=== PATIENT | female | born 1985 ===

== ENCOUNTER 2018-04-14 21:36 | Observation (INO) | payer OTHER ==
[2018-04-14 22:05] VITALS: BMI 45.3
--- NOTE | 2018-04-14 23:05 | ED PDOC ---
Arrival/HPI - General Chief Complaint: Upper Extremity Problem/Injury Time Seen by Provider: 04/14/18 22:21 Historian: Patient - History of Present Illness Narrative History of Present Illness (Text): 04/14/18 23:05 Sirena Richard is a 33 year old female, whose past medical history includes carpal tunnel syndrome s/p recent surgery, who presents to the Emergency department with complaints of pain in right wrist. Patient reports she recently had right carpal tunnel surgical repair performed and went to her orthopedist's office today for suture removal. Patient states she had pain and swelling with purulent discharge from the area after they were removed. Patient's orthopedist placed more sutures while in the office, but patient reports pain and swelling did not resolve so she removed them at home. Patient denies fevers, chills, weakness/numbness/tingling in the extremity, decreased range of motion, nausea, vomiting, neck pain, headache, dizziness, or any other complaints. Orthopedist: Dr. Pacheco Time/Duration: 4-6 hours Symptom Onset: Gradual Symptom Course: Worsening Activities at Onset: Light Context: Home Past Medical History - Provider Review Nursing Documentation Reviewed: Yes - Musculoskeletal/Rheumatological Other/Comment: carpal tunnel - Psychiatric Hx Substance Use: No - Surgical History Hx Orthopedic Surgery: Yes - Anesthesia Hx Anesthesia: Yes Family/Social History - Physician Review Nursing Documentation Reviewed: Yes Family/Social History: Unknown Family HX Smoking Status: Never Smoked Hx Alcohol Use: No Hx Substance Use: No Allergies/Home Meds Allergies/Adverse Reactions: Allergies cefazolin [From Ancef] Allergy (Verified 04/14/18 22:05) SWELLING Review of Systems - Physician Review All systems were reviewed & negative as marked: Yes - Review of Systems Constitutional: absent: Fevers Respiratory: absent: SOB, Cough Cardiovascular: absent: Chest Pain Gastrointestinal: absent: Abdominal Pain, Nausea, Vomiting Musculoskeletal: Other (+right wrist pain/swelling). absent: Back Pain, Neck Pain Neurological: absent: Headache, Dizziness Physical Exam Vital Signs Reviewed: Yes Vital Signs Temp Pulse Resp BP Pulse Ox 04/14/18 22:04 97.9 F 85 18 122/76 99 Temperature: Afebrile Blood Pressure: Normal Pulse: Regular Respiratory Rate: Normal Appearance: Positive for: Well-Appearing, Non-Toxic, Comfortable Pain Distress: None Mental Status: Positive for: Alert and Oriented X 3 - Systems Exam Head: Present: Atraumatic, Normocephalic Pupils: Present: PERRL Extroacular Muscles: Present: EOMI Conjunctiva: Present: Normal Mouth: Present: Moist Mucous Membranes Neck: Present: Normal Range of Motion Respiratory/Chest: Present: Clear to Auscultation, Good Air Exchange. No: Respiratory Distress, Accessory Muscle Use Cardiovascular: Present: Regular Rate and Rhythm, Normal S1, S2. No: Murmurs Abdomen: No: Tenderness, Distention, Peritoneal Signs Back: Present: Normal Inspection Upper Extremity: Present: Tenderness (Right wrist tenderness), Swelling (Right wrist swelling ), Erythema (Right wrist erythema), Temperature Abnormalties (Rig ht wrist warmth). No: Cyanosis, Edema Lower Extremity: Present: Normal Inspection. No: Edema Neurological: Present: GCS=15, CN II-XII Intact, Speech Normal Skin: Present: Warm, Dry, Normal Color. No: Rashes Psychiatric: Present: Alert, Oriented x 3, Normal Insight, Normal Concentration Medical Decision Making ED Course and Treatment: 04/14/18 23:18 Impression: 33 year old female complaining of right wrist pain, swelling, and purulent disch arge. Plan: -- Labs -- Blood Culture -- Reassess and disposition Prior Visits: Notes and results from previous visits were reviewed. Progress Notes: 04/15/18 01:02 Case discussed with medical office administrator environmental monitoring specialist, who is aware and agrees with plan. 04/15/18 01:[address] Brooks, who is aware and agrees with plan. Accepts pt in to the hospitalist service. Pt will go to [facility] observation for cellulitis. - Lab Interpretations I have reviewed the lab results: Yes - PA / DATA WAREHOUSE SPECIALIST / Resident Statement MD/DO has reviewed & agrees with the documentation as recorded. - Scribe Statement The provider has reviewed the documentation as recorded by the Scribbryan Choi training with Val Dallas Provider Scribe Attestation: All medical record entries made by the Scribe were at my direction and personally dictated by me. I have reviewed the chart and agree that the record accurately reflects my personal performance of the history, physical exam, medical decision making, and the department course for this patient. I have also personally directed, reviewed, and agree with the discharge instructions and disposition. Disposition/Present on Arrival - Present on Arrival Any Indicators Present on Arrival: No History of DVT/PE: No History of Uncontrolled Diabetes: No Urinary Catheter: No History of Decub. Ulcer: No History Surgical Site Infection Following: None - Disposition Have Diagnosis and Disposition been Completed?: Yes Diagnosis: Cellulitis, Surgical wound infection Disposition: HOSPITALIZED Disposition Time: 01:10 Patient Problems: Current Active Problems Problem Status Onset Cellulitis Acute Surgical wound infection Acute Condition: STABLE
[2018-04-14 23:55] LABS: ALBUMIN 4.2 g/dL (3.0-4.8); BLOOD UREA NITROGEN 16 mg/dL (7-21); GFR NON-AFRICAN AMERICAN > 60
[2018-04-14 23:59] LABS: HEMOGLOBIN 12.3 g/dL (12.0-16.0); MEAN CELL VOLUME 83.4 fl (80.0-105.0); MEAN CORPUSCULAR HEMOGLOBIN 27.2 pg (25.0-35.0); MEAN CORPUSCULAR HGB CONC 32.5 g/dl (31.0-37.0); MEAN PLATELET VOLUME 9.9 fl (7.0-11.0); RBC 4.53 10^6/uL (3.5-6.1); RED CELL DISTRIBUTION WIDTH 14.2 % (11.5-14.5); WHITE BLOOD COUNT 10.3 10^3/ul (4.5-11.0)
[2018-04-15 00:02] LABS: ALT/SGPT 27 U/L (7-56); AST/SGOT 29 U/L (14-36)
[2018-04-15] MEDS ORDERED: Aztreonam 1 Gm in NS 100mL 100 ML IVPB STA (00:38)
[2018-04-15] MEDS ORDERED: Vancomycin 1gm in NS 250ml 1 GM/250 ML BAG IVPB STA (00:43)
--- NOTE | 2018-04-15 01:47 | CP.PCM.HP ---
<Alden Benson - Last Filed: 04/15/18 06:11> History of Present Illness - History of Present Illness History of Present Illness: Alden Benson, PGY1 Hospital H&P This is a 33 year old female with PMH of carpel tunnel in right hand presenting to the hospital for one day day history of right wrist pain. She had carpel tunnel release surgery on right hand on 04/02/18 and was pain free until today after returning from orthopedic clinic where she had 4 sutures removed and had 4 butterfly stitches placed. Upon returning home, she noticed some swelling and yellow pus draining at site of stitches and subsequently removed them. She currently admits to pain in the right wrist rated 8/10, constant, non radiating, sharp, associated with tingling sensation and worse with movement and touch. She denies CP, SOB, fevers, chills, headaches, abdominal pain, back pain, urinary complaints, numbness and swelling. 12 point ROS noted here, otherwise unremarkable. Patient is Kiswahili speaking. In ED, patient afebrile and blood work was unremarkable. Patient given vancomycin and aztreonam. PMD: [facility] Ortho: Dr Cindy Pacheco PMH: carpel tunnel of right hand SH: denies smoking, alcohol and drug use Sx: molar removal, carpel tunnel release of right hand FH: heart disease, DM, HTN All: ancef Meds: none LMP: 03/23, no irregular bleeding or cycles Present on Admission - Present on Admission Any Indicators Present on Admission: No Past Patient History - Past Social History Smoking Status: Never Smoked - MUSCULOSKELETAL/RHEUMATOLOGICAL Other/Comment: carpal tunnel - PSYCHIATRIC Hx Substance Use: No - SURGICAL HISTORY Hx Orthopedic Surgery: Yes - ANESTHESIA Hx Anesthesia: Yes Meds Allergies/Adverse Reactions: Allergies Allergy/AdvReac Type Severity Reaction Status Date / Time cefazolin [From Anc] Allergy SWELLING Verified 04/14/18 22:05 Physical Exam - Constitutional Appears: No Acute Distress - Head Exam Head Exam: ATRAUMATIC, NORMAL INSPECTION - Eye Exam Eye Exam: EOMI Pupil Exam: PERRL - ENT Exam ENT Exam: Mucous Membranes Moist - Respiratory Exam Respiratory Exam: Clear to Auscultation Bilateral. absent: Respiratory Distress - Cardiovascular Exam Cardiovascular Exam: REGULAR RHYTHM, +S1, +S2 - GI/Abdominal Exam GI & Abdominal Exam: Normal Bowel Sounds. absent: Firm, Guarding - Extremities Exam Extremities exam: Positive for: normal inspection. Negative for: calf tenderness Additional comments: Upper extremity pulses +2 B/L. Right hand swelling appreciated. Diffuse tenderness along right wrist and hand present. Right medial wrist has no puss or active bleeding from surgical site, erythematous margins present around wound which measures approx 4cm x 1cm. Reduced active and passive ROM of right wrist. - Neurological Exam Neurological exam: Alert, Oriented x3 - Skin Skin Exam: Normal Color, Warm Results - Vital Signs Recent Vital Signs: Last Vital Signs Temp 97.9 F 04/14/18 22:04 Pulse 85 04/14/18 22:04 Resp 18 04/14/18 22:04 BP 122/76 04/14/18 22:04 Pulse Ox 99 04/14/18 22:04 - Labs Result Diagrams: 04/15/18 03:28 04/15/18 03:28 Labs: Laboratory Results - last 24 hr 04/14/18 04/14/18 23:25 23:25 WBC 10.3 RBC 4.53 Hgb 12.3 Hct 37.8 MCV 83.4 MCH 27.2 MCHC 32.5 RDW 14.2 Plt Count 293 MPV 9.9 Sodium 138 Potassium 4.4 Chloride 103 Carbon Dioxide 26 Anion Gap 13 BUN 16 Creatinine 0.6 L Est GFR ( Amer) > 60 Est GFR (Non-Af Amer) > 60 Random Glucose 117 H Calcium 9.0 Total Bilirubin 0.3 AST 29 ALT 27 Alkaline Phosphatase 94 Total Protein 8.2 Albumin 4.2 Globulin 4.0 Albumin/Globulin Ratio 1.0 L Assessment & Plan - Assessment and Plan (Free Text) Assessment: This is a 33 year old female with PMH of carpel tunnel in right hand presenting to the hospital for one day day history of right wrist pain after removing s titches from surgery site today. Plan: Right hand wound: -Right wrist US pending, r/o abscess -Right hand carpel tunnel release surgery done on 04/02/18 -Afebrile, WBC WNL -Blood cultures pending -Patient previously saw Dr Pacheco at [facility] in [place]. Phone number is [phone] to obtain records -Continue Vancomycin and aztreonam -Percocet q6 prn for pain -Toradol q8 prn for pain -Flexeril TID prn -NS @ 75cc/hr -ESR, CRP pending -NPO except meds -Consider MRI of right hand -Ortho on consult PPX with pepcid and heparin 5k Patient seen and case discussed with attending, Dr. Brooks <Annie Brooks - Last Filed: 04/15/18 06:21> Results - Vital Signs Recent Vital Signs: Last Vital Signs Temp 97.9 F 04/14/18 22:04 Pulse 80 04/15/18 01:20 Resp 20 04/15/18 04:15 BP 128/77 04/15/18 01:20 Pulse Ox 99 04/15/18 02:50 - Labs Result Diagrams: 04/15/18 03:28 04/15/18 03:28 Labs: Laboratory Results - last 24 hr 04/14/18 04/14/18 04/15/18 23:25 23:25 03:28 WBC 10.3 9.8 RBC 4.53 4.45 Hgb 12.3 12.1 Hct 37.8 37.0 MCV 83.4 83.1 MCH 27.2 27.2 MCHC 32.5 32.7 RDW 14.2 14.0 Plt Count 293 273 MPV 9.9 9.7 Gran % 57.7 Lymph % (Auto) 32.5 Stearns % (Auto) 7.6 H Eos % (Auto) 1.8 Baso % (Auto) 0.4 Gran # 5.63 Lymph # (Auto) 3.2 Stearns # (Auto) 0.7 H Eos # (Auto) 0.2 Baso # (Auto) 0.04 ESR 33 H Sodium 138 Potassium 4.4 Chloride 103 Carbon Dioxide 26 Anion Gap 13 BUN 16 Creatinine 0.6 L Est GFR ( Amer) > 60 Est GFR (Non-Af Amer) > 60 Random Glucose 117 H Calcium 9.0 Total Bilirubin 0.3 AST 29 ALT 27 Alkaline Phosphatase 94 Total Protein 8.2 Albumin 4.2 Globulin 4.0 Albumin/Globulin Ratio 1.0 L 04/15/18 03:28 WBC RBC Hgb Hct MCV MCH MCHC RDW Plt Count MPV Gran % Lymph % (Auto) Stearns % (Auto) Eos % (Auto) Baso % (Auto) Gran # Lymph # (Auto) Stearns # (Auto) Eos # (Auto) Baso # (Auto) ESR Sodium 138 Potassium 4.1 Chloride 105 Carbon Dioxide 24 Anion Gap 12 BUN 15 Creatinine 0.6 L Est GFR ( Amer) > 60 Est GFR (Non-Af Amer) > 60 Random Glucose 116 H Calcium 9.0 Total Bilirubin 0.2 AST 22 ALT 23 Alkaline Phosphatase 99 Total Protein 7.8 Albumin 4.1 Globulin 3.7 Albumin/Globulin Ratio 1.1 Attending/Attestation - Attestation I have personally seen and examined this patient.: Yes I have fully participated in the care of the patient.: Yes I have reviewed all pertinent clinical information: Yes
[2018-04-15] MEDS ORDERED: Oxycodone/Acetaminophen 5/325 mg Tab PO PRN (02:27)
[2018-04-15] MEDS ORDERED: Sodium Chloride 0.9% 1,000 ML IV SCH (02:30)
[2018-04-15] MEDS ORDERED: Morphine 2 mg/ml ISec IVP STA (03:25)
[2018-04-15] MEDS ORDERED: Morphine 2 mg/ml ISec IVP PRN (03:32)
[2018-04-15 03:38] LABS: BASO # 0.04 K/mm3 (0.0-2.0); BASO % 0.4 % (0.0-3.0); EOS # 0.2 (0.0-0.7); EOS % 1.8 % (1.5-5.0); GRAN # 5.63 (1.4-6.5); GRAN % 57.7 % (50.0-68.0); HEMOGLOBIN 12.1 g/dL (12.0-16.0); LYMPH # 3.2 (1.2-3.4); LYMPH % 32.5 % (22.0-35.0); MEAN CELL VOLUME 83.1 fl (80.0-105.0); MEAN CORPUSCULAR HEMOGLOBIN 27.2 pg (25.0-35.0); MEAN CORPUSCULAR HGB CONC 32.7 g/dl (31.0-37.0); MEAN PLATELET VOLUME 9.7 fl (7.0-11.0); MONO # 0.7 (0.1-0.6); MONO % 7.6 % (1.0-6.0); RBC 4.45 10^6/uL (3.5-6.1); WHITE BLOOD COUNT 9.8 10^3/ul (4.5-11.0)
[2018-04-15 04:21] LABS: ALB/GLOB RATIO 1.1 (1.1-1.8); ALBUMIN 4.1 g/dL (3.0-4.8); ALT/SGPT 23 U/L (7-56); AST/SGOT 22 U/L (14-36); BLOOD UREA NITROGEN 15 mg/dL (7-21); GFR NON-AFRICAN AMERICAN > 60
[2018-04-15] MEDS: Aztreonam 1 Gm in NS 100mL 100 ML IVPB SCH ×2 (05:51→13:34)
--- NOTE | 2018-04-15 12:36 | US ---
Date of service: 04/15/2018 PROCEDURE: LIMITED RIGHT WRIST/PALM SOFT TISSUE ULTRASONOGRAPHY HISTORY: R wrist swelling and pain; r/o abscess. The patient reports status post prior right wrist carpal tunnel surgery 04/02/2018. COMPARISON: none available. TECHNIQUE: Ultrasonography was performed using a linear high-frequency transducer at the inferior right palm and right wrist superficial dorsal soft tissues using grayscale as well as color Doppler analysis. FINDINGS: Mildly inhomogeneous subcutaneous soft tissue changes are identified in the area in question at the inferior palm and volar wrist soft tissues with no suspicious fluid collection appreciable. Heterogeneous echotexture is likely a function of postoperative change. Normal color Doppler blood flows appreciated no definite pattern suggest an abscess at this time. Further clinical correlation is advised. IMPRESSION: Limited postoperative changes are suggested at the visualized right palm and wrist superficial soft tissues without definite fluid collection to suggest abscess at this time. No definite hyperemia appreciable either. Clinically correlate further. Should clinical suspicion of abscess remain or increase, then follow-up MRI or CT with and without contrast is recommended.
--- NOTE | 2018-04-15 14:20 | CP.PCM.DIS ---
<Donal Carter - Last Filed: 04/15/18 14:23> Provider - Provider Date of Admission: 04/15/18 01:08 Attending physician: Antwan Sharpe MD Time Spent in preparation of Discharge (in minutes): 45 Diagnosis - Discharge Diagnosis (1) Surgical wound infection Status: Acute Priority: High Hospital Course - Lab Results Lab Results: Most Recent Lab Values WBC 9.8 10^3/ul (4.5-11.0) 04/15/18 03:28 RBC 4.45 10^6/uL (3.5-6.1) 04/15/18 03:28 Hgb 12.1 g/dL (12.0-16.0) 04/15/18 03:28 Hct 37.0 % (36.0-48.0) 04/15/18 03:28 MCV 83.1 fl (80.0-105.0) 04/15/18 03:28 MCH 27.2 pg (25.0-35.0) 04/15/18 03:28 MCHC 32.7 g/dl (31.0-37.0) 04/15/18 03:28 RDW 14.0 % (11.5-14.5) 04/15/18 03:28 Plt Count 273 10^3/uL (120.0-450.0) 04/15/18 03:28 MPV 9.7 fl (7.0-11.0) 04/15/18 03:28 Gran % 57.7 % (50.0-68.0) 04/15/18 03:28 Lymph % (Auto) 32.5 % (22.0-35.0) 04/15/18 03:28 Rincon % (Auto) 7.6 % (1.0-6.0) H 04/15/18 03:28 Eos % (Auto) 1.8 % (1.5-5.0) 04/15/18 03:28 Baso % (Auto) 0.4 % (0.0-3.0) 04/15/18 03:28 Gran # 5.63 (1.4-6.5) 04/15/18 03:28 Lymph # (Auto) 3.2 (1.2-3.4) 04/15/18 03:28 Rincon # (Auto) 0.7 (0.1-0.6) H 04/15/18 03:28 Eos # (Auto) 0.2 (0.0-0.7) 04/15/18 03:28 Baso # (Auto) 0.04 K/mm3 (0.0-2.0) 04/15/18 03:28 ESR 33 mm/hr (0.0-20.0) H 04/15/18 03:28 Sodium 138 mmol/L (132-148) 04/15/18 03:28 Potassium 4.1 mmol/L (3.6-5.0) 04/15/18 03:28 Chloride 105 mmol/L (98-107) 04/15/18 03:28 Carbon Dioxide 24 mmol/L (21-33) 04/15/18 03:28 Anion Gap 12 (10-20) 04/15/18 03:28 BUN 15 mg/dL (7-21) 04/15/18 03:28 Creatinine 0.6 mg/dl (0.7-1.2) L 04/15/18 03:28 Est GFR ( Amer) > 60 04/15/18 03:28 Est GFR (Non-Af Amer) > 60 04/15/18 03:28 Random Glucose 116 mg/dL (70-110) H 04/15/18 03:28 Calcium 9.0 mg/dL (8.4-10.5) 04/15/18 03:28 Total Bilirubin 0.2 mg/dL (0.2-1.3) 04/15/18 03:28 AST 22 U/L (14-36) 04/15/18 03:28 ALT 23 U/L (7-56) 04/15/18 03:28 Alkaline Phosphatase 99 U/L (38-126) 04/15/18 03:28 C-Reactive Protein 19.10 mg/L (0.0-9.9) H 04/15/18 03:40 C-React Prot High Sens > 15.00 mg/L (1.00-3.00) H 04/15/18 03:28 Total Protein 7.8 g/dL (5.8-8.3) 04/15/18 03:28 Albumin 4.1 g/dL (3.0-4.8) 04/15/18 03:28 Globulin 3.7 gm/dL 04/15/18 03:28 Albumin/Globulin Ratio 1.1 (1.1-1.8) 04/15/18 03:28 - Hospital Course Hospital Course: This is a 33 year old female with PMH of carpel tunnel in right hand presenting to the hospital for one day day history of right wrist pain. She had carpel tunnel release surgery on right hand on 04/02/18 and was pain free until today after returning from orthopedic clinic where she had 4 sutures removed and had 4 butterfly stitches placed. Upon returning home, she noticed some swelling and yellow pus draining at site of stitches and subsequently removed them. She admitted to pain in the right wrist rated 8/10, constant, non radiating, sharp, associated with tingling sensation and worse with movement and touch. During patient's hospital stay, she was treated with Aztreonam and vancomycin. She also received an ultrasound of the right forearm. The US was negative for any evidence of abscess. Pt is advised to follow up with her primary care physician within 1 week. Pt is being sent home with a 7 day prescription of Bactrim to be taken twice a day. Pt advised to return to the emergency room if her symptoms return or worsen. - Date & Time of H&P Date of H&P: 04/15/18 Time of H&P: 14:30 Discharge Exam - Head Exam Head Exam: ATRAUMATIC, NORMAL INSPECTION - Eye Exam Eye Exam: EOMI - ENT Exam ENT Exam: Mucous Membranes Moist - Respiratory Exam Respiratory Exam: NORMAL BREATHING PATTERN, UNREMARKABLE. absent: Wheezes, Respiratory Distress, Stridor - Cardiovascular Exam Cardiovascular Exam: RRR, +S1, +S2. absent: Diastolic murmur, Systolic Murmur - GI/Abdominal Exam GI & Abdominal Exam: Normal Bowel Sounds, Soft, Unremarkable. absent: Tenderness - Extremities Exam Extremities exam: full ROM, pedal pulses present Additional comments: pt has surgical incision on right wrist from carpal tunnel surgery - Neurological Exam Neurological exam: Alert, Oriented x3 - Psychiatric Exam Psychiatric exam: Normal Affect, Normal Mood - Skin Skin Exam: Dry, Warm Discharge Plan - Discharge Medications Prescriptions: Sulfamethoxazole/Trimethoprim [Bactrim DS 800 mg-160 mg] 1 tab PO BID #14 tab - Follow Up Plan Condition: STABLE Disposition: HOME/ ROUTINE Additional Instructions: 1. please follow up with your primary care physician within 1 week 2. please follow up with your surgeon within 1 week after discharge 3. please complete the entire course of antibiotics, you are being sent home with Bactrim. please take 1 tablet twice a day for 7 days. 4. If your symptoms return or worsen, please go to the nearest emergency department <Antwan Sharpe - Last Filed: 04/15/18 16:12> Provider - Provider Date of Admission: 04/15/18 01:08 Attending physician: Antwan Sharpe [facility] Course - Lab Results Lab Results: Most Recent Lab Values WBC 9.8 10^3/ul (4.5-11.0) 04/15/18 03:28 RBC 4.45 10^6/uL (3.5-6.1) 04/15/18 03:28 Hgb 12.1 g/dL (12.0-16.0) 04/15/18 03:28 Hct 37.0 % (36.0-48.0) 04/15/18 03:28 MCV 83.1 fl (80.0-105.0) 04/15/18 03:28 MCH 27.2 pg (25.0-35.0) 04/15/18 03:28 MCHC 32.7 g/dl (31.0-37.0) 04/15/18 03:28 RDW 14.0 % (11.5-14.5) 04/15/18 03:28 Plt Count 273 10^3/uL (120.0-450.0) 04/15/18 03:28 MPV 9.7 fl (7.0-11.0) 04/15/18 03:28 Gran % 57.7 % (50.0-68.0) 04/15/18 03:28 Lymph % (Auto) 32.5 % (22.0-35.0) 04/15/18 03:28 Rincon % (Auto) 7.6 % (1.0-6.0) H 04/15/18 03:28 Eos % (Auto) 1.8 % (1.5-5.0) 04/15/18 03:28 Baso % (Auto) 0.4 % (0.0-3.0) 04/15/18 03:28 Gran # 5.63 (1.4-6.5) 04/15/18 03:28 Lymph # (Auto) 3.2 (1.2-3.4) 04/15/18 03:28 Rincon # (Auto) 0.7 (0.1-0.6) H 04/15/18 03:28 Eos # (Auto) 0.2 (0.0-0.7) 04/15/18 03:28 Baso # (Auto) 0.04 K/mm3 (0.0-2.0) 04/15/18 03:28 ESR 33 mm/hr (0.0-20.0) H 04/15/18 03:28 Sodium 138 mmol/L (132-148) 04/15/18 03:28 Potassium 4.1 mmol/L (3.6-5.0) 04/15/18 03:28 Chloride 105 mmol/L (98-107) 04/15/18 03:28 Carbon Dioxide 24 mmol/L (21-33) 04/15/18 03:28 Anion Gap 12 (10-20) 04/15/18 03:28 BUN 15 mg/dL (7-21) 04/15/18 03:28 Creatinine 0.6 mg/dl (0.7-1.2) L 04/15/18 03:28 Est GFR ( Amer) > 60 04/15/18 03:28 Est GFR (Non-Af Amer) > 60 04/15/18 03:28 Random Glucose 116 mg/dL (70-110) H 04/15/18 03:28 Calcium 9.0 mg/dL (8.4-10.5) 04/15/18 03:28 Total Bilirubin 0.2 mg/dL (0.2-1.3) 04/15/18 03:28 AST 22 U/L (14-36) 04/15/18 03:28 ALT 23 U/L (7-56) 04/15/18 03:28 Alkaline Phosphatase 99 U/L (38-126) 04/15/18 03:28 C-Reactive Protein 19.10 mg/L (0.0-9.9) H 04/15/18 03:40 C-React Prot High Sens > 15.00 mg/L (1.00-3.00) H 04/15/18 03:28 Total Protein 7.8 g/dL (5.8-8.3) 04/15/18 03:28 Albumin 4.1 g/dL (3.0-4.8) 04/15/18 03:28 Globulin 3.7 gm/dL 04/15/18 03:28 Albumin/Globulin Ratio 1.1 (1.1-1.8) 04/15/18 03:28 Attending/Attestation - Attestation I have personally seen and examined this patient.: Yes I have fully participated in the care of the patient.: Yes I have reviewed all pertinent clinical information, including history, physical exam and plan: Yes Notes (Text): 04/15/18 16:09 33 year old female with past medical history of carpal tunnel s/p recent release surgery presented with right wrist pain and swelling. She was started on antibiotics. Ultrasound was negative for abscess or fluid collection. She was seen by orthopedic surgery who recommended outpatient follow up. Patient is discharged home on po antibiotics. Follow up with pmd and surgeon within one week. Antwan Sharpe MD Hospitalist.
[2018-04-15 14:44] VITALS: BP 127/83; PULSE 85; RESP 18; TEMP 98.7; O2SAT 100
[2018-04-15] MEDS ORDERED: Vancomycin 1gm in NS 250ml 1 GM/250 ML BAG IVPB SCH (15:00)
--- NOTE | 2018-04-15 22:31 | CON ---
DATE: 04/15/2018 ORTHOPEDIC CONSULTATION A 33-year-old female. LOCATION: Room 577, bed 2. I was asked to see the patient for inflammation of her right hand who has carpal tunnel syndrome from 04/02/2018. She was admitted to the emergency room, and it appears that the wound is 100% good. There is no evidence of deep infection as I could palpate the palmar space without any undue discomfort. She has no paresthesia to the hand. She did report pus coming out of the wound, but I am sure it was serous drainage as the suture surrounding looks dry and that in fact it might have a little inflammation but nothing unusual for carpal tunnel surgery. She could move the hand and wrist well. She could be discharged on probably p.o. antibiotics for five days and go and see her original orthopedic doctor that she came from. I do not need to see her any more. She will see her private orthopedic Dr. tomorrow. Robinson Metcalf DO
== END 2018-04-15 19:10 | disposition home or self-care (01) ==
LOC: ED 21:36 → ERH 04-15 01:08 → 5RSO 04-15 02:46
PROVIDERS: ADMIT Internal Medicine; ATTEND Internal Medicine
DX: T81.41XA Infection following a procedure, superficial incisional surgical site, initial encounter (principal); L03.113 Cellulitis of right upper limb; Z82.49 Family history of ischemic heart disease and other diseases of the circulatory system; Z83.3 Family history of diabetes mellitus; Z88.1 Allergy status to other antibiotic agents
CPT/HCPCS: 36415; 76881; 80053; 85025; 85027; 85651; 86140; 87040; 96365; 96375; 96376; 99284; G0378; J1885

== ENCOUNTER 2018-06-16 15:27 | Emergency (ER) | payer OTHER ==
[2018-06-16 15:27] VITALS: BMI 45.3
[2018-06-16 15:39] VITALS: TEMP 98.3
[2018-06-16 16:12] LABS: URINE BILIRUBIN NEGATIVE (NEGATIVE); URINE BLOOD TRACE-INTACT (NEGATIVE); URINE GLUCOSE (UA) NEGATIVE (NEGATIVE); URINE LEUKOCYTE ESTERASE NEGATIVE Leu/uL (NEGATIVE); URINE PROTEIN NEGATIVE mg/dL (<30 mg/dL); URINE UROBILINOGEN 0.2 E.U./dL (<1 E.U./dL)
[2018-06-16 16:13] LABS: URINE APPEARANCE CLEAR (CLEAR); URINE COLOR LIGHT YELLOW (YELLOW)
[2018-06-16 16:17] LABS: URINE EPITHELIAL CELLS 0 - 2 /hpf (0-5); URINE RBC 0 - 2 /hpf (0-2); URINE WBC NEGATIVE /hpf (0-6)
[2018-06-16] MEDS ORDERED: Sodium Chloride 0.9% 1,000 ML IV STA (16:50)
--- NOTE | 2018-06-16 16:58 | ED PDOC ---
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 She states she experiences pain when she holds her urine, noting lower back pain and abdominal pain. Patient notes she holds her urine while at work, noting dysuria when urinating. Patient reports she has had these symptoms in the past when she was living in [place], noting her symptoms was self-limited in nature, but would would still receive antibiotics for 6 days every time her symptoms would occur. Patient denies fevers, chills, chest pain, nausea emesis, abdominal pain, dizziness, weakness nor any other complaints. PMD: Dr. Cash Time/Duration: 1 week (Patient notes symptoms for past week ) Symptom Onset: Sudden Symptom Course: Unchanged Activities at Onset: Rest Context: Home Past Medical History - Provider Review Nursing Documentation Reviewed: Yes - Infectious Disease Hx of Infectious Diseases: None - Reproductive Menopause: No - Cardiac Hx Cardiac Disorders: No Hx Angina: No Hx Cardiac Arrhythmia: No Hx Circulatory Problems: No Hx Congestive Heart Failure: No Hx Heart Murmur: No Hx Heart Transplant: No Hx Hypertension: No Hx Internal Defibrillator: No Hx Mitral Valve Prolapse: No Hx Pacemaker: No Hx Peripheral Edema: No Hx Peripheral Vascular Disease: No - Pulmonary Hx Respiratory Disorders: No Hx Asthma: No Hx Bronchitis: No Hx Chronic Obstructive Pulmonary Disease (COPD): No Hx Emphysema: No Hx Pneumonia: No Hx Respiratory Aspiration: No Hx Respiratory Tract Infection: No Hx Sleep Apnea: No Hx Tuberculosis: No - Neurological Hx Neurological Disorder: No Hx Alzheimer's Disease: No HX Cerebrovascular Accident: No Hx Dementia: No Hx Dizziness: No Hx Meningitis: No Hx Migraine: No Hx Parkinson's Disease: No Hx Seizures: No Hx Transient Ischemic Attacks (TIA): No - HEENT Hx HEENT Disorder: No Hx Blind: No Hx Cataracts: No Hx Deafness: No Hx Difficulty Chewing: No Hx Epistaxis: No Hx Glaucoma: No Hx Macular Degeneration: No - Renal Hx Renal Disorder: No Hx Dialysis: No Hx Kidney Stones: No Hx Neurogenic Bladder: No Hx Pyelonephritis: No Hx Renal Cancer: No Hx Renal Failure: No - Endocrine/Metabolic Hx Endocrine Disorders: No Hx Adrenal Cancer: No Hx Diabetes Insipidus: No Hx Diabetes Mellitus Type 1: No Hx Diabetes Mellitus Type 2: No Hx Hyperthyroidism: No Hx Hypothyroidism: No Hx Systemic Lupus Erythematosus: No - Hematological/Oncological Hx Blood Disorders: No Hx AIDS: No Hx Anemia: No Hx Cancer: No Hx Chemotherapy: No Hx Cirrhosis: No Hx Hemophilia: No Hx Hepatitis A: No Hx Hepatitis B: No Hx Hepatitis C: No Hx Metastasis: No Hx Shingles: No Hx Sickle Cell Disease: No Hx Unexplained Bleeding: No - Integumentary Hx Dermatological Disorder: No Hx Basal Cell Carcinoma: No Hx Eczema: No Hx Melanoma: No Hx Psoriasis: No Hx Squamous Cell Carcinoma: No - Musculoskeletal/Rheumatological Other/Comment: carpal tunnel - Gastrointestinal Hx Gastrointestinal Disorders: No Hx Colostomy: No Hx Crohn's Disease: No Hx Diverticulitis: No Hx Gall Bladder Disease: No Hx Gastroesophageal Reflux: No Hx Gastrointestinal Ulcer: No Hx Ileostomy: No Hx Liver Failure: No Hx Pancreatitis: No HX Swallowing Problems: No - Genitourinary/Gynecological Hx Genitourinary Disorders: No Hx Hematuria: No Hx Incontinence: No Hx Prostate Problems: No Hx Sexually Transmitted Diseases: No Hx Urinary Tract Infection: No - Psychiatric Hx Psychophysiologic Disorder: No Hx Anxiety: No Hx Bipolar Disorder: No Hx Depression: No Hx Emotional Abuse: No Hx Hallucinations: No Hx Panic Disorder: No Hx Post Traumatic Stress Disorder: No Hx Psychosis: No Hx Physical Abuse: No Hx Schizophrenia: No Hx Sexual Abuse: No Hx Substance Use: No - Surgical History Hx Orthopedic Surgery: Yes - Anesthesia Hx Anesthesia: Yes Hx Anesthesia Reactions: No Hx Malignant Hyperthermia: No Family/Social History - Physician Review Nursing Documentation Reviewed: Yes Family/Social History: No Known Family HX Smoking Status: Never Smoked Hx Alcohol Use: No Hx Substance Use: No Allergies/Home Meds Allergies/Adverse Reactions: Allergies cefazolin [From Ancef] Allergy (Verified 06/16/18 15:39) SWELLING Review of Systems - Physician Review All systems were reviewed & negative as marked: Yes - Review of Systems Constitutional: Normal. absent: Fevers, Night Sweats Gastrointestinal: Abdominal Pain (pt notes abdominal pain ). absent: Normal Genitourinary Female: Dysuria (pt notes ). absent: Normal Musculoskeletal: Back Pain (pt notes lower back pain ). absent: Normal Physical Exam Vital Signs Reviewed: Yes Vital Signs Temp Pulse Resp BP Pulse Ox 06/16/18 15:37 98.3 F 99 H 20 119/78 97 Temperature: Afebrile Blood Pressure: Normal Pulse: Tachycardic Respiratory Rate: Normal Appearance: Positive for: Well-Appearing, Non-Toxic Pain Distress: Mild Mental Status: Positive for: Alert and Oriented X 3 - Systems Exam Head: Present: Atraumatic, Normocephalic Pupils: Present: PERRL Extroacular Muscles: Present: EOMI Conjunctiva: Present: Normal Mouth: Present: Moist Mucous Membranes Neck: Present: Normal Range of Motion Respiratory/Chest: Present: Clear to Auscultation, Good Air Exchange. No: Respiratory Distress, Accessory Muscle Use Cardiovascular: Present: Regular Rate and Rhythm, Normal S1, S2. No: Murmurs Abdomen: No: Tenderness, Distention, Peritoneal Signs Back: Present: CVA Tenderness (left-sided CVA tenderness ). No: Normal Inspection Upper Extremity: Present: Normal Inspection. No: Cyanosis, Edema Lower Extremity: Present: Normal Inspection. No: Edema Neurological: Present: GCS=15, CN II-XII Intact, Speech Normal Skin: Present: Warm, Dry, Normal Color. No: Rashes Psychiatric: Present: Alert, Oriented x 3, Normal Insight, Normal Concentration Medical Decision Making ED Course and Treatment: 06/16/18 16:35 Impression: 33 year old [place] speaking female who presents to the Emergency department noting she has a UTI for the past week due to dysuria, lower back pain and abdominal pain. Differential Diagnosis included but are not limited to: --UTI --Pyelonpehritis --Kidney Stone Plan: -- CT of abdomen and pelvis -- Labs -- Toradol -- Urine culture -- POC Urine test -- Urinalysis w/micro -- Reassess and disposition Prior Visits: Notes and results from previous visits were reviewed. Patient was last seen in the emergency department on 04/14/18 with complaints of pain in right wrist. Pt was hospitalized in stable condition with diagnosis of cellulitis and surgical wound infection. Progress Notes: UA reviewed with no evidence of UTI, but trace blood noted. CT scan reviewed showing no evidence of hydronephrosis, perinephric stranding or evidence of impacted stone. Bilateral non obstructing 3mm stones noted. Patient updated on findings and advised to follow up with her PCP. Patient demonstrates understanding and will continue conservative management at home. She is stable for discharge. - Lab Interpretations Lab Results: Lab Results 06/16/18 16:00: Urine Color Light yellow, Urine Appearance Clear, Urine pH 6.0, Ur Specific [place] 1.025, Urine Protein Negative, Urine Glucose (UA) Negative, Urine Ketones Negative, Urine Blood Trace-intact H, Urine Nitrate Negative, Urine Bilirubin Negative, Urine Urobilinogen 0.2, Ur Leukocyte Esterase Negative, Urine RBC 0 - 2, Urine WBC Negative, Ur Epithelial Cells 0 - 2 I have reviewed the lab results: Yes - RAD Interpretation Narrative RAD Interpretations (Text): CT of abdomen and pelvis: Dictated by: Lowell Valdivia MD Dictated Date/Time: 06/16/18 17:39 Impression: Bilateral nonobstructing renal calculi. None exceed 3 mm in diameter. 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 I have reviewed the chart and agree that the record accurately reflects my personal performance of the history, physical exam, medical decision making, and the department course for this patient. I have also personally directed, reviewed, and agree with the discharge instructions and disposition. Disposition/Present on Arrival - Present on Arrival Any Indicators Present on Arrival: No History of DVT/PE: No History of Uncontrolled Diabetes: No Urinary Catheter: No History of Decub. Ulcer: No History Surgical Site Infection Following: Orthopedic Procedures - Disposition Have Diagnosis and Disposition been Completed?: Yes Diagnosis: Renal stones Disposition: HOME/ ROUTINE Disposition Time: 18:25 Patient Plan: Discharge Condition: STABLE Discharge Instructions (ExitCare): Kidney Stones (DC) Print Language: LITHUANIAN Additional Instructions: All medical record entries made by the Scribe were at my direction and personally dictated by me. I have reviewed the chart and agree that the record accurately reflects my personal performance of the history, physical exam, medical decision making, and the department course for this patient. I have also personally directed, reviewed, and agree with the discharge instructions and disposition. Prescriptions: RX: Ibuprofen [Motrin Tab] 600 mg PO Q6H PRN 6 Days #24 tab PRN Reason: Pain, Moderate (4-7) Referrals: Mamadou Alvares MD [Staff Provider] - Follow up with primary Forms: [employer] (Danish)
[2018-06-16 17:27] LABS: ALB/GLOB RATIO 1.1 (1.1-1.8); ALBUMIN 4.3 g/dL (3.0-4.8); ALT/SGPT 34 U/L (7-56); AST/SGOT 25 U/L (14-36); BLOOD UREA NITROGEN 17 mg/dL (7-21); CALCIUM 9.2 mg/dL (8.4-10.5); GFR NON-AFRICAN AMERICAN > 60
[2018-06-16 17:28] LABS: BASO # 0.05 K/mm3 (0.0-2.0); BASO % 0.5 % (0.0-3.0); EOS # 0.1 (0.0-0.7); EOS % 1.5 % (1.5-5.0); GRAN # 5.5 (1.4-6.5); GRAN % 60.5 % (50.0-68.0); HEMOGLOBIN 11.6 g/dL (12.0-16.0); LYMPH # 2.9 (1.2-3.4); LYMPH % 31.3 % (22.0-35.0); MEAN CELL VOLUME 83.9 fl (80.0-105.0); MEAN CORPUSCULAR HEMOGLOBIN 26.7 pg (25.0-35.0); MEAN CORPUSCULAR HGB CONC 31.9 g/dl (31.0-37.0); MEAN PLATELET VOLUME 9.8 fl (7.0-11.0); MONO # 0.6 (0.1-0.6); MONO % 6.2 % (1.0-6.0); RBC 4.34 10^6/uL (3.5-6.1); RED CELL DISTRIBUTION WIDTH 14.2 % (11.5-14.5); WHITE BLOOD COUNT 9.1 10^3/uL (4.5-11.0)
--- NOTE | 2018-06-16 17:42 | CT ---
Date of service: 06/16/2018 PROCEDURE: CT Abdomen and Pelvis without intravenous contrast HISTORY: L CVA tenderness and suprapubic tenderness COMPARISON: None. TECHNIQUE: Unenhanced. Neither IV nor oral contrast administered Radiation dose: Total exam DLP = 1325.71 mGy-cm. This CT exam was performed using one or more of the following dose reduction techniques: Automated exposure control, adjustment of the mA and/or kV according to patient size, and/or use of iterative reconstruction technique. FINDINGS: LOWER THORAX: Unremarkable. LIVER: Unremarkable. No gross lesion or ductal dilatation. GALLBLADDER AND BILE DUCTS: Unremarkable. PANCREAS: Unremarkable. No gross lesion or ductal dilatation. SPLEEN: Unremarkable. ADRENALS: Unremarkable. No mass. KIDNEYS AND URETERS: Nephrolithiasis, bilateral. None of the visible calculi exceed 3 mm. Negative study for hydronephrosis or hydroureter. VASCULATURE: Unremarkable. No aortic aneurysm. No atherosclerotic calcification or mural plaque present. BOWEL: Unremarkable. No obstruction. No gross mural thickening. APPENDIX: No abnormalities to suggest acute appendicitis. No right lower quadrant inflammatory processes identified. PERITONEUM: Unremarkable. No free fluid. No free air. LYMPH NODES: Unremarkable. No enlarged lymph nodes. BLADDER: Unremarkable. REPRODUCTIVE: Unremarkable. BONES: No acute fracture. OTHER FINDINGS: None. IMPRESSION: Bilateral nonobstructing renal calculi. None exceed 3 mm in diameter.
[2018-06-16 18:41] VITALS: BP 122/80; PULSE 85; RESP 18; O2SAT 100
== END 2018-06-16 18:50 | disposition home or self-care (01) ==
LOC: ED 15:27
DX: N20.0 Calculus of kidney (principal)
CPT/HCPCS: 74176; 80053; 81001; 85025; 87086; 96374; 99283; J1885; J7030